=== PATIENT | male | born 1985 | race Caucasian/White ===

== ENCOUNTER 2019-03-26 16:57 | Emergency (ER) | payer MEDICAID ==
[~2019-03-26] VITALS: Ht 180.3 cm; Wt 68.5 kg
[2019-03-26 19:30] VITALS: BP 135/95
== END 2019-03-26 20:11 | disposition home or self-care (01) ==
LOC: ED 17:17
DX: F10.120 Alcohol abuse with intoxication, uncomplicated (principal); G89.29 Other chronic pain; M47.894 Other spondylosis, thoracic region; M51.34 Other intervertebral disc degeneration, thoracic region; R10.10 Upper abdominal pain, unspecified; R11.10 Vomiting, unspecified; Y90.9 Presence of alcohol in blood, level not specified
CPT/HCPCS: 36415; 72072; 80053; 80307; 83690; 84443; 85025; 93005; 96361; 96374; 99284; J2060; J7030